=== PATIENT | male | born 1945 | race Caucasian/White ===

== ENCOUNTER → 2017-04-02 | Outpatient (CLI) | payer BC ==
[~2017-04-02] MED LIST: ASPIR-LOW81 MG PO; FLEXERIL5 MG PO; LISINOPRIL20 MG PO; LOVASTATIN40 MG PO; MULTIPLE VITAM1 EAC1 PO; PROAIR HFA8.5 GM PO
[2017-04-02 10:04] LABS: HEMATOCRIT 47.9 % (38.0-50.0); HEMOGLOBIN 16.1 G/DL (12.5-16.6); MCH 30.8 PG (29.0-34.0); MCHC 33.6 G/DL (30.0-36.0); MCV 91.6 FL (86-99); PLATELET COUNT 218 K/uL (156-360); RBC DIS.WIDTH-CV 12.9 % (11.8-14.6); RBC DIS.WIDTH-SD 43.4 % (39-53); RED BLOOD COUNT 5.23 M/uL (4.00-5.50); WHITE BLOOD COUNT 5.4 K/uL (4.1-10.2)
[2017-04-02 10:14] LABS: PTT 30.5 SEC (25-37)
[2017-04-02 10:16] LABS: CHLORIDE 106 mEq/L (99-109); POTASSIUM 4.7 mEq/L (3.7-5.4); SODIUM 140 mEq/L (136-147)
[2017-04-02 10:17] LABS: GLUCOSE 110 mg/dL (70-99)
[2017-04-02 10:21] LABS: CREATININE 0.9 mg/dL (0.6-1.3); GFR ESTIMATE (CALCULATED) > 59 mL/min/ (58.99-99999)
[2017-04-02 10:22] LABS: UREA NITROGEN (BUN) 20 mg/dL (9-23)
== END | disposition home or self-care (01) ==
LOC: OPR 09:24 → EDSTATUS 10:00
PROVIDERS: Internal Medicine Pulmonary Disease
PROC: BW24ZZZ Computerized Tomography (CT Scan) of Chest and Abdomen (ICD-10-PCS; principal; 2017-04-02)
PROC: 0BBC3ZX Excision of Right Upper Lung Lobe, Percutaneous Approach, Diagnostic (ICD-10-PCS; principal; 2017-04-02)
DX: C34.11 Malignant neoplasm of upper lobe, right bronchus or lung (principal)
CPT/HCPCS: 71045; 77012; 80048; 85027; 85610; 85730; 88305; 88341 TC; 88342 TC; J3010

== ENCOUNTER → 2017-04-09 | Outpatient (CLI) | payer BC | END | disposition home or self-care (01) | LOC: CDC 10:30 | DX: C34.90 Malignant neoplasm of unspecified part of unspecified bronchus or lung (principal); R91.1 Solitary pulmonary nodule | CPT/HCPCS: 93000 ==

== ENCOUNTER → 2017-04-09 | Outpatient (CLI) | payer BC ==
[~2017-04-09] MED LIST changes: +COLACE100 MG PO; +HYDROCODON-ACE1 EAC7 PO
[2017-04-09 11:54] LABS: BASE EXCESS 0.7 mEq/L (-3 to +3); BICARBONATE 25.4 mEq/L (22-26); CARBOXY HGB 2.1 % (0-5); COMMENTS - BLOOD GASES A+C+; DEVICE ROOM AIR; METHEMOGLOBIN 1.1 % (0-1.5); PCO2 40 mm Hg (35-45); PO2 75 mm Hg (80-100); SITE LR; TOTAL RESP RATE 20 resp/min; pH 7.41 (7.35-7.45)
== END | disposition home or self-care (01) ==
LOC: RES 11:34
PROVIDERS: Thoracic Surgery (Cardiothoracic Vascular Surgery)
DX: R91.1 Solitary pulmonary nodule (principal); C34.90 Malignant neoplasm of unspecified part of unspecified bronchus or lung
CPT/HCPCS: 36600; 82803

== ENCOUNTER 2017-04-18 11:38 | Day surgery (SDC) | payer BC ==
[~2017-04-18] VITALS: Ht 182.9 cm; Wt 134.7 kg
[~2017-04-18 11:38] MED LIST changes: -COLACE100 MG PO; -HYDROCODON-ACE1 EAC7 PO
[2017-04-18 12:15] VITALS: BP 177/77
[2017-04-18] MEDS ORDERED: COLACE100 MG PO (15:23)
[2017-04-18] MEDS ORDERED: HYDROCODON-ACE1 EAC7 PO (15:23)
[2017-04-18 15:35] VITALS: BP 174/82
[2017-04-18 16:11] VITALS: BP 181/85
== END 2017-04-18 16:11 | disposition home or self-care (01) ==
LOC: SDC 11:38
PROC: 0WJC4ZZ Inspection of Mediastinum, Percutaneous Endoscopic Approach (ICD-10-PCS; principal; 2017-04-18)
DX: C34.11 Malignant neoplasm of upper lobe, right bronchus or lung (principal); I10 Essential (primary) hypertension; J44.9 Chronic obstructive pulmonary disease, unspecified; Z77.090 Contact with and (suspected) exposure to asbestos; Z96.653 Presence of artificial knee joint, bilateral; Z87.891 Personal history of nicotine dependence
CPT/HCPCS: 86850; 86900; 86901; J0131; J0330; J0690; J1100; J2405; J3010